=== PATIENT | male | born 1990 | race Caucasian/White ===

== ENCOUNTER 2020-02-26 22:51 | Emergency (ER) | payer OTHER ==
[~2020-02-26] VITALS: Ht 175.3 cm; Wt 104.3 kg
[2020-02-26 23:33] VITALS: Ht 175.3 cm; Wt 104.3 kg
[2020-02-27 00:15] VITALS: BP 138/87
== END 2020-02-27 00:15 | disposition home or self-care (01) ==
LOC: ED 22:51
DX: G89.29 Other chronic pain (principal); M25.562 Pain in left knee; M25.561 Pain in right knee; Z88.1 Allergy status to other antibiotic agents
CPT/HCPCS: J1885

== ENCOUNTER 2020-02-27 23:04 | Emergency (ER) | payer OTHER ==
[~2020-02-27] VITALS: Ht 175.3 cm; Wt 104.3 kg
[2020-02-27 23:16] VITALS: BP 125/80; Ht 175.3 cm; Wt 104.3 kg
== END 2020-02-28 02:31 | disposition home or self-care (01) ==
LOC: ED 23:04
DX: F41.9 Anxiety disorder, unspecified (principal); Z88.0 Allergy status to penicillin; Z88.1 Allergy status to other antibiotic agents

== ENCOUNTER 2020-04-10 21:30 | Emergency (ER) | payer OTHER ==
[~2020-04-10] VITALS: Ht 175.3 cm; Wt 111.6 kg
[2020-04-10 21:39] VITALS: Ht 175.3 cm; Wt 111.6 kg
[2020-04-10 22:30] VITALS: BP 130/77
== END 2020-04-10 22:30 | disposition home or self-care (01) ==
LOC: ED 21:30
DX: K08.89 Other specified disorders of teeth and supporting structures (principal); Z88.0 Allergy status to penicillin; F31.9 Bipolar disorder, unspecified; Z88.1 Allergy status to other antibiotic agents